=== PATIENT | female | born 1995 ===

== ENCOUNTER 2017-10-26 17:15 | Emergency (ER) | payer OTHER ==
[2017-10-26] MEDS ORDERED: NS 0.9% 1000 ML* 1,000 ML IV ONE (18:42)
[2017-10-26 19:26] LABS: Urine Appearance Cloudy; Urine Blood Negative (Negative); Urine Color Yellow; Urine Ketones Negative (Negative); Urine Protein Negative (Negative); Urine Specific Gravity 1.015 (1.010-1.030); Urine Urobilinogen Negative (Negative)
[2017-10-26 20:01] LABS: ABS Basophils 0.1 10^3/ul (0-0.2); ABS Eosinophils 0.4 10^3/ul (0-0.6); ABS Lymphocytes 3.3 10^3/ul (1.0-4.8); ABS Monocytes 0.6 10^3/ul (0-0.8); ABS Neutrophils 3.8 10^3/ul (1.5-7.7); ABS Nucleated RBC 0 10^3/ul; Eosinophil % 4.7 % (0-6); Hematocrit 36 % (35-47); Hemoglobin 12.2 g/dl (12.0-16.0); Lymphocyte % 40.2 % (25-47); Mean Corpuscular HGB Conc 34 g/dl (31-36); Mean Corpuscular Hemoglobin 30 pg (27-31); Mean Corpuscular Volume 88 fL (80-97); Mean Platelet Volume 6.9 um3 (7.4-10.4); Nucleated Red Blood Cells % 0.2; Platelet Count 316 10^3/ul (150-450); Red Blood Count 4.06 10^6/ul (4.0-5.4); Red Cell Distribution Width 13 % (10.5-15); White Blood Count 8.2 10^3/ul (3.5-10.8)
[2017-10-26 20:14] LABS: EGFR Non-African American 101.3 (>60)
--- NOTE | 2017-10-26 20:26 | ED ---
Syncope/Near Syncope - HPI Summary HPI Summary: 22 female presents with syncope twice in the past 2 weeks. She states 2 weeks ago she passed out 2 times in a row. She states before she passed out she feels very lightheaded and gets tunnel vision. She states then she passed out. States afterwards she had some palpitations. She denies any chest pain or SOB. She states yesterday she also passed out. She states she has been eating less than normal. She also states she is under stress and anxiety. She has been hearing feeling palpitations intermittently for the past year. She states that she is about to graduate as is very nervous. She denies any suicidal or homicidal thoughts. She states a month ago she was seen at Hospital diagnosed with anemia and UTI. She denies any heavy vaginal bleeding. She states that she has been feeling weak. She admits to recent decrease in appetite. She denies any abdominal pain, nausea or vomiting. She denies any palpations currently. She states she just feels lightheaded. She denies any headache. She denies any family history of CAD or syncope. She state she has passed out many times throughout her life. She is not a smoker. She is not on control. - History Of Current Complaint Chief Complaint: EDDizziness Time Seen by Provider: 10/26/17 18:26 - Allergies/Home Medications Allergies/Adverse Reactions: Allergies Allergy/AdvReac Type Severity Reaction Status Date / Time No Known Allergies Allergy Verified 06/13/15 18:32 Home Medications: Home Medications Amphetamine/Dextroamph ER(NF) [Adderal XR (NF)] 20 mg PO DAILY 10/26/17 [ History Confirmed 10/26/17] PMH/Surg Hx/FS Hx/Imm Hx Endocrine/Hematology History: Denies: Hx Anticoagulant Therapy Cardiovascular History: Denies: Hx Myocardial Infarction - Surgical History Surgery Procedure, Year, and Place: LEG SURGERY TRAUMA REPAIR Infectious Disease History: No Infectious Disease History: Denies: Traveled Outside the [place] in Last 30 Days - Family History Known Family History: Positive: Other - no family history of syncope Negative: Cardiac Disease - Social History Alcohol Use: None Substance Use Type: Reports: None Smoking Status (MU): Never Smoked Tobacco Review of Systems Negative: Fever Positive: Palpitations. Negative: Chest Pain Negative: Shortness Of Breath Positive: Syncope Positive: Anxious All Other Systems Reviewed And Are Negative: Yes Physical Exam Triage Information Reviewed: Yes Vital Signs On Initial Exam: Initial Vitals Temp Pulse Resp BP Pulse Ox 96.5 F 84 16 123/81 98 10/26/17 17:20 10/26/17 17:20 10/26/17 17:20 10/26/17 17:20 10/26/17 17:20 Vital Signs Reviewed: Yes Appearance: Positive: Well-Appearing Skin: Positive: Warm, Dry Head/Face: Positive: Normal Head/Face Inspection Eyes: Positive: Normal, EOMI, [place], Conjunctiva Clear ENT: Positive: Normal ENT inspection, Pharynx normal, TMs normal Respiratory/Lung Sounds: Positive: Clear to Auscultation, Breath Sounds Present Cardiovascular: Positive: Normal, RRR Abdomen Description: Positive: Nontender, Soft Bowel Sounds: Positive: Present Musculoskeletal: Positive: Normal Neurological: Positive: Sensory/Motor Intact, Alert, Oriented to Person Place, Time, CN Intact II-III, Finger to Nose Psychiatric: Positive: Anxious - [place] Coma Scale Best Eye Response: 4 - Spontaneous Best Motor Response: 6 - Obeys Commands Best Verbal Response: 5 - Oriented Coma Scale Total: 15 Diagnostics - Vital Signs Vital Signs Temp Pulse Resp BP Pulse Ox 10/26/17 19:40 70 16 100/71 100 10/26/17 19:18 70 100/71 100 10/26/17 19:14 70 100 10/26/17 18:37 68 100 10/26/17 17:20 96.5 F 84 16 123/81 98 - Laboratory Lab Results: Lab Results 10/26/17 10/26/17 10/26/17 Range/Units 19:12 19:44 19:44 WBC 8.2 (3.5-10.8) 10^3/ul RBC 4.06 (4.0-5.4) 10^6/ul Hgb 12.2 (12.0-16.0) g/dl Hct 36 (35-47) % MCV 88 (80-97) fL MCH 30 (27-31) pg MCHC 34 (31-36) g/dl RDW 13 (10.5-15) % Plt Count 316 (150-450) 10^3/ul MPV 6.9 L (7.4-10.4) um3 Neut % (Auto) 46.6 (38-83) % Lymph % (Auto) 40.2 (25-47) % [place] % (Auto) 7.8 H (0-7) % Eos % (Auto) 4.7 (0-6) % Baso % (Auto) 0.7 (0-2) % Absolute Neuts (auto) 3.8 (1.5-7.7) 10^3/ul Absolute Lymphs (auto) 3.3 (1.0-4.8) 10^3/ul Absolute Monos (auto) 0.6 (0-0.8) 10^3/ul Absolute Eos (auto) 0.4 (0-0.6) 10^3/ul Absolute Basos (auto) 0.1 (0-0.2) 10^3/ul Absolute Nucleated RBC 0 10^3/ul Nucleated RBC % 0.2 Sodium 137 L (139-145) mmol/L Potassium 3.7 (3.5-5.0) mmol/L Chloride 105 (101-111) mmol/L Carbon Dioxide 23 (22-32) mmol/L Anion Gap 9 (2-11) mmol/L BUN 10 (6-24) mg/dL Creatinine 0.72 (0.51-0.95) mg/dL Est GFR ( Amer) 130.3 (>60) Est GFR (Non-Af Amer) 101.3 (>60) BUN/Creatinine Ratio 13.9 (8-20) Glucose 81 (70-100) mg/dL Lactic Acid (0.5-2.0) mmol/L Calcium 9.4 (8.6-10.3) mg/dL Magnesium 1.9 (1.9-2.7) mg/dL Total Bilirubin 0.30 (0.2-1.0) mg/dL AST 15 (13-39) U/L ALT 9 (7-52) U/L Alkaline Phosphatase 49 (34-104) U/L Troponin I 0.00 (<0.04) ng/mL C-React Prot High Sens 1.51 mg/L Total Protein 7.1 (6.4-8.9) g/dL Albumin 4.1 (3.2-5.2) g/dL Globulin 3.0 (2-4) g/dL Albumin/Globulin Ratio 1.4 (1-3) TSH Pending Beta HCG, Quant < 0.60 mIU/mL Urine Color Yellow Urine Appearance Cloudy Urine pH 7.0 (5-9) Ur Specific [place] 1.015 (1.010-1.030) Urine Protein Negative (Negative) Urine Ketones Negative (Negative) Urine Blood Negative (Negative) Urine Nitrate Negative (Negative) Urine Bilirubin Negative (Negative) Urine Urobilinogen Negative (Negative) Ur Leukocyte Esterase Trace A (Negative) Urine WBC (Auto) Trace(0-5/hpf) (Absent) Urine RBC (Auto) Absent (Absent) Ur Squamous Epith Cells Present A (Absent) Urine Bacteria Absent (Absent) Urine Glucose Negative (Negative) 10/26/17 Range/Units 19:44 WBC (3.5-10.8) 10^3/ul RBC (4.0-5.4) 10^6/ul Hgb (12.0-16.0) g/dl Hct (35-47) % MCV (80-97) fL MCH (27-31) pg MCHC (31-36) g/dl RDW (10.5-15) % Plt Count (150-450) 10^3/ul MPV (7.4-10.4) um3 Neut % (Auto) (38-83) % Lymph % (Auto) (25-47) % [place] % (Auto) (0-7) % Eos % (Auto) (0-6) % Baso % (Auto) (0-2) % Absolute Neuts (auto) (1.5-7.7) 10^3/ul Absolute Lymphs (auto) (1.0-4.8) 10^3/ul Absolute Monos (auto) (0-0.8) 10^3/ul Absolute Eos (auto) (0-0.6) 10^3/ul Absolute Basos (auto) (0-0.2) 10^3/ul Absolute Nucleated RBC 10^3/ul Nucleated RBC % Sodium (139-145) mmol/L Potassium (3.5-5.0) mmol/L Chloride (101-111) mmol/L Carbon Dioxide (22-32) mmol/L Anion Gap (2-11) mmol/L BUN (6-24) mg/dL Creatinine (0.51-0.95) mg/dL Est GFR ( Amer) (>60) Est GFR (Non-Af Amer) (>60) BUN/Creatinine Ratio (8-20) Glucose (70-100) mg/dL Lactic Acid 0.9 (0.5-2.0) mmol/L Calcium (8.6-10.3) mg/dL Magnesium (1.9-2.7) mg/dL Total Bilirubin (0.2-1.0) mg/dL AST (13-39) U/L ALT (7-52) U/L Alkaline Phosphatase (34-104) U/L Troponin I (<0.04) ng/mL C-React Prot High Sens mg/L Total Protein (6.4-8.9) g/dL Albumin (3.2-5.2) g/dL Globulin (2-4) g/dL Albumin/Globulin Ratio (1-3) TSH Beta HCG, Quant mIU/mL Urine Color Urine Appearance Urine pH (5-9) Ur Specific [place] (1.010-1.030) Urine Protein (Negative) Urine Ketones (Negative) Urine Blood (Negative) Urine Nitrate (Negative) Urine Bilirubin (Negative) Urine Urobilinogen (Negative) Ur Leukocyte Esterase (Negative) Urine WBC (Auto) (Absent) Urine RBC (Auto) (Absent) Ur Squamous Epith Cells (Absent) Urine Bacteria (Absent) Urine Glucose (Negative) Result Diagrams: 10/26/17 19:44 10/26/17 19:44 Lab Statement: Any lab studies that have been ordered have been reviewed, and results considered in the medical decision making process. - EKG No standard instances Cardiac Rate: NL EKG Rhythm: Sinus Rhythm EKG Interpretation: sinus rhythm, possible RVH Re-Evaluation - Re-Evaluation First Eval Re-Evaluation Time: 21:20 Change: Improved Comment: feeling better after fluids Course/Dx Course Of Treatment: 22 female presents with syncope twice in the past 2 weeks. She states 2 weeks ago she passed out 2 times in a row. She states before she passed out she feels very lightheaded and gets tunnel vision. She states then she passed out. States afterwards she had some palpitations. She denies any chest pain or SOB. She states yesterday she also passed out. She states she has been eating less than normal. She also states she is under stress and anxiety. She has been hearing feeling palpitations intermittently for the past year. She states that she is about to graduate as is very nervous. She denies any suicidal or homicidal thoughts. She states a month ago she was seen at Hospital diagnosed with anemia and UTI. She denies any heavy vaginal bleeding. She states that she has been feeling weak. She admits to recent decrease in appetite. She denies any abdominal pain, nausea or vomiting. She denies any palpations currently. She states she just feels lightheaded. She denies any headache. She denies any family history of CAD or syncope. She state she has passed out many times throughout her life. She is not a smoker. She is not on control. On exam lungs clear to auscultation abdomen soft nontender tender normal neuro exam. Labs: white blood cell count normal. Patient is not anemic. Troponin and d-dimer negative. EKG normal. Thyroid normal. urine appears more likely contaminant than uti will wait only for final culture. We will have follow-up with primary about repeat syncopal episodes. palpitations are likely due to stress. told to keep a diary of symptoms. patient understands and agrees with plan. - Diagnoses Differential Diagnosis/HQI/PQRI: Positive: Hypoglycemia, Hypovolemia, Pulmonary Embolism, Vasovagal Episode Provider Diagnoses: Syncope, Palpitations, Lightheadedness Discharge - Sign-Out/Discharge Documenting (check all that apply): Discharge - Discharge Plan Condition: Good Disposition: HOME Patient Education Materials: Syncope (ED) Forms: *Gen. Provider Communication Referrals: No Primary Care Phys,NOPCP [Primary Care Provider] - Additional Instructions: Follow up with primary within 2 weeks Keep a diary of symptoms Try to reduce your stress Get enough sleep Eat small snacks throughout the day Return to ED if develop any new or worsening symptoms - Billing Disposition and Condition Condition: GOOD Disposition: HOME
[2017-10-26 21:45] VITALS: BP 100/55
== END 2017-10-26 21:51 | disposition home or self-care (01) ==
LOC: ED 17:15
DX: R55 Syncope and collapse (principal); R00.2 Palpitations; R42 Dizziness and giddiness
CPT/HCPCS: 36415; 80053; 81003; 81015; 83605; 83735; 84443; 84484; 84702; 85025; 85379; 86141; 87086; 93005; 96360; 99283